=== PATIENT | female | born 1985 | race Caucasian/White ===

== ENCOUNTER 2018-01-13 12:00 | Inpatient (IN) ==
--- OUTSIDE RECORDS SUMMARY | 2018-03-13 05:25 | External Medical Summary | Continuity of Care Document ---
:1986 Author Organization [facility] [employer] [facility] Address [address] [place], [place] [address] Phone Care Team Providers Name Role Phone Brii Bobby MD Unavailable Unavailable Allergies, Adverse Reactions, Alerts Substance Reaction Severity Status No Known Drug Allergies Unknown Active Medications Medication Instructions Dosage Effective Dates Status Comments (start - stop) Rhophylac 1,500 - Active unit (300 mcg)/2 mL injection syringe 27 mg-0.8 take 1 tablet by Not Available - Active mg tablet oral route every day Tylenol Extra take 2 tablet by 1000 MG - Active Strength 500 mg oral route every 6 tablet hours as needed Problems Condition Effective Dates (start - stop) Clinical Status Previous Low Transverse - 28 weeks gestation of - Encounter for suprvsn of normal - , second trimester 25 weeks gestation of - Previous Low Transverse - Encounter for suprvsn of normal - , second trimester 20 weeks gestation of - Previous Low Transverse - Encounter for suprvsn of normal - , third trimester 30 weeks gestation of - Previous Low Transverse - Matern care for oth or susp poor fetl - grth, 2nd tri, unsp Encounter for suprvsn of normal - , second trimester 16 weeks gestation of - Previous Low Transverse - Matern care for oth or susp poor fetl - grth, 2nd tri, unsp 20 weeks gestation of - Procedures Procedure Date OB Visit No Charge Results Test Name Date and Time Measure Units Reference Range Abnormal Flag Comments Unknown Advance Directives Directive Yes / No Effective Date File Name Unknown Encounters Encounter Practice Location Reason(s) Diagnoses Date Provider Care Team Description For Visit Members Victorino Owens Previous Low Dec- Concetta Referring In Womens Transverse 9-201 Tiff. Provider: Victor Manuel HADLEY, C-SectionEncou 8 700 Tiff [address], nter for [place], suprvsn of Center 700 [id number], normal Dr [facility] , 120, Center tel:+21 third [place], [facility] 120, [address] [id number] Roman MARIE, weeks [id number] [place], gestation of , [place]. [id number]. tel: tel:[phone] Victorino Owens Previous Low Dec-0 Salmeron Referring In Womens Transverse 6-201 Sue. Provider: Victor Manuel HADLEY [id number] 8 700 Tiff [address], weeks [place], gestation of Center 700 [id number], Dr [facility] 120, [place] tel:+21 [facility] 120, [address] [place], Roman, [id number] [place], , [place]. [id number]. tel: tel:[phone] Victorino Owens Encounter for Salmeron Referring In Womens suprvsn of 6-201 Sue. Provider: Victor Manuel HADLEY normal 8 700 Tiff [address], , [place], second Center 700 [id number], [id number] Dr [facility] weeks 120, Center tel:+[phone] gestation of [place], [facility] 120, [address] Roman MARIE, [id number] [place], , [place]. [id number]. tel: tel:+ [phone] Victorino Owens Previous Low Dec-1 Concetta Referring In Womens Transverse 4-201 Tiff. Provider: Victor Manuel HADLEY, C-SectionEncou 7 700 Tiff [address], nter for Medical Concetta [place], suprvsn of Center 700 [id number], normal , [facility] , 120, Center tel: second Roman, Jose 120, [address] [id number] Roman MARIE, weeks [id number] [place], gestation of , [place]. [id number]. tel: tel: [phone] Victorino Owens Previous Low Dec-1 Concetta Referring In Womens Ultrasound Transverse 4-201 Tiff. Provider: Victor Manuel HADLEY, C-SectionMater 7 700 Tiff [address], n care for oth Medical Concetta L, Krystal, [place], or susp poor Center 700 [id number], 2nd Kira rabago, [facility] tri, unsp20 120, [place] tel: weeks Roman, Jose 120, [address] gestation of Roman MARIE, [id number] [place], , [place]. [id number]. tel: tel: [phone] Victorino Owens Nov-1 Sobbing In Womens 7-201 Tomasz. Victor Manuel HADLEY, 7 700 [address], [facility] [place], [place], Center [id number], Drive, [place] Suite tel: 120, [address] [place], [address], [place]. tel: [phone] Victorino Owens Previous Low Nov-1 Concetta Referring In Womens Transverse 6-201 Tiff. Provider: Victor Manuel HADLEY, C-SectionMater 7 700 Tiff [address], n care for ot Medical Concetta LKrystal, [place], or susp poor Center 700 [id number], 2nd Kira rabago, [facility] tri, 120, [place] tel:21 unspEncounter Roman, Jose 120, [address] for suprvsn of Roman MARIE, normal [id number] [place], , , [place]. [id number]. second tel: tel: [id number] [phone] weeks gestation of Associates Roman Dec- Blanche Referring In Womens 6-201 Xiomy. Provider: Victor Manuel HADLEY, 4 700 Jazz Ramos, [address], Medical [facility] [place], [place], Center Carriage [id number], Jose Malone [place], 120, [place], tel:21 [place], [address]. [address] [place], tel: [phone] , [place]. tel: [phone] Victorino Owens Nov-2 Blanche Referring In Womens 0-201 Xiomy. Provider: Victor Manuel HADLEY, 4 700 Jazz Ramos, [address], Medical [facility] [place], [place], Center Carriage [id number], [facility], 120, [place], tel:21 [place], [address]. [address] [place], tel: [phone] , [place]. tel: [phone] Victorino Owens Nov- Blanche Referring In Womens 3-201 Xiomy. Provider: Victor Manuel HADLEY, 4 700 Jazz Ramos, [address], [place] [address] [address] [place], [place], Center Carriage [id number], Jose Malone [place], 120, [place], tel:21 [place], [address]. [address] [place], tel: [phone] , [place]. tel: [phone] Family History Family Member Diagnosis Age At Onset No family history of Venous Thrombosis Maternal Grandmother Breast Cancer No family history of Pulmonary Embolism Immunizations Vaccine Date Status Comments Rhophylac completed Source: New Immunization Record Influenza, injectable, completed Source: New Immunization Record quadrivalent, preservative free, 3 yrs or older Tdap completed Source: Other Provider Payers Payer name Insurance type Covered libertarian ID Authorization(s) [facility] [id number] [facility] BL [id number] [facility] [id number] Social History Type Description Quantity Date Captured Alcohol Use Details No Caffeine Use Details Unknown Tobacco Use Status Unknown Smoking Status Never smoker Vital Signs Date / Height Weight BMI Pulse Blood Temperature Respiratory Body Head BMI Time: Rate Pressure Rate Surface Circumference percentile Area 9 9 3:07 kg/m PM eter (2) 161.20 26.8 99/59 -2018 lbs 2 mm[Hg] 3:14 kg/m PM eter (2) 161.20 .8 lbs 2 3:11 kg/m PM eter (2) Chief Complaint And Reason For Visit Unknown Chief Complaint And Reason For Visit Reason For Referral Reason For Referral Unknown Plan Of Care Date Type Action Status Appointment Debbie Rhodes BOOKED Appointment Debbie Rhodes BOOKED Appointment Debbie Rhodes BOOKED Appointment Debbie Rhodes [facility] C/S BOOKED Future Order: Radiology Order Complete OB Ultrasound > 14 Ordered Weeks (70220) Date Type Problem Goal Intervention Status Start Date Unknown. History Of Present Illness Encounter Date Complaint History Of Present Illness This patient has no known history of present illness Functional Status Encounter Date Functional Assessment Cognitive Assessment Unknown Medications Administered Medication Instructions Dosage Effective Dates (start - stop) Status Comments Drug Treatment Unknown Instructions Date Instruction Additional Information new ob handbook [facility]
--- OUTSIDE RECORDS SUMMARY | 2018-03-13 05:25 | External Medical Summary | Continuity of Care Document ---
:1986 Author Organization [facility] Address [address] [place], [place] [address] Phone Care Team Providers Name Role Phone Brii Bobby MD Unavailable Unavailable Allergies, Adverse Reactions, Alerts Substance Reaction Severity Status No Known Drug Allergies Unknown Active Medications Medication Instructions Dosage Effective Dates Status Comments (start - stop) 27 mg-0.8 take 1 tablet by Not Available - Active mg tablet oral route every day Tylenol Extra take 2 tablet by 1000 MG - Active Strength 500 mg oral route every 6 tablet hours as needed Problems Condition Effective Dates (start - stop) Clinical Status Previous Low Transverse - Matern care for oth or susp poor fetl - grth, 2nd tri, unsp Encounter for suprvsn of normal - , second trimester 16 weeks gestation of - Procedures Procedure Date Initial OB Visit No Charge - RADIO RECORDER Immuniz admnin, 1 vac, sngl/combo 19 Yrs + Flu Vaccine - Quadrivalent OB Prepayment Agreement Results Test Name Date and Time Measure Units Reference Range Abnormal Flag Comments Unknown Advance Directives Directive Yes / No Effective Date File Name Unknown Encounters Encounter Practice Location Reason(s) Diagnoses Date Provider Care Team Description For Visit Members Associates Roman Nina In [address], 700 [address], [place], [place], [place] [id number], Drive, Suite tel:[phone], [address] [place], [address], [place]. tel: [phone] Victorino Owens Previous Low Concetta Referring In Womens Tiff. Provider: Victor Manuel HADLEY, C-SectionMatern 700 Tiff [address], care for oth or Medical Concetta L, [place], [place], susp poor fetl Center 700 [id number], grkerrie, 2nd tri, , [facility] unspEncounter 120, [place] [address] tel:21 for suprvsn of [place], [facility] 120, [address] normal [place], [place], , [id number] [place], second , [place]. [id number]. [id number] tel: tel:316 weeks gestation [phone] of Victorino Owens Blanche Referring In Womens Xiomy. Provider: Katerin Martines, [address], Medical [address] [place], [place], Center Carriage [id number], [facility] 120, [place], tel:21 [place], [address]. [address] [place], tel: [phone] , [place]. tel: [phone] Victorino [place] Blanche Referring In Womens -2013 Xiomy. Provider: Katerin Martines, [address], Medical [address] [place], [place], Center Carriage [id number], Dr [facility], 120, [place], tel:21 [place], [address]. [address] [place], tel:[phone] , [place]. tel: [phone] Victorino Owens Radhaoscar Referring In Womens Xiomy. Provider: Katerin Martines, [address], Medical [address] [place], [place], Center Carriage [id number], Jose Malone [place], 120, [place], tel:+21 [place], [address]. [address] [place], tel:[phone] , [place]. tel: [phone] Family History Family Member Diagnosis Age At Onset No family history of Venous Thrombosis Maternal Grandmother Breast Cancer No family history of Pulmonary Embolism Immunizations Vaccine Date Status Comments Influenza, injectable, completed Source: New Immunization Record quadrivalent, preservative free, 3 yrs or older Tdap completed Source: Other Provider Payers Payer name Insurance type Covered republican ID Authorization(s) [facility] [id number] [facility] [id number] Social History Type Description Quantity Date Captured Alcohol Use Details No Caffeine Use Details coffee 1 cup per day Tobacco Use Status Never smoked tobacco Smoking Status Never smoker Vital Signs Date / Height Weight BMI Pulse Blood Temperature Respiratory Body Head BMI Time: Rate Pressure Rate Surface Circumference percentile Area 145.30 24.1 106/70 lbs 8 mm[Hg] 1:58 kg/m PM eter (2) Chief Complaint And Reason For Visit Unknown Chief Complaint And Reason For Visit Reason For Referral Reason For Referral Unknown Plan Of Care Date Type Action Status Appointment Debbie Rhodes BOOKED Appointment Debbie Rhodes BOOKED Date Type Problem Goal Intervention Status Start [...]
--- OUTSIDE RECORDS SUMMARY | 2018-03-13 05:25 | External Medical Summary | Continuity of Care Document ---
:1986 Author Organization [facility] [employer] [facility] Address [address] [place], [place] [address] Phone Care Team Providers Name Role Phone [...] stop) Clinical Status Previous Low Transverse - Encounter for suprvsn [...] For Visit Members Victorino Owens Previous Low Dec-1 Concetta Referring In Womens Transverse 4-201 Tiff. Provider: Victor Manuel HADLEY, C-SectionEncou 7 700 Tiff [address], nter for Medical [place], suprvsn of Center 700 [id number], normal , [facility] , 120, Center tel:21 second [place], Jose 120, [address] [id number] Roman MARIE, weeks [id number] [place], gestation of , [place]. [id number]. tel: tel: [phone] Victorino Owens Previous Low Dec-1 Concetta Referring In Womens Ultrasound Transverse 4-201 Tiff. Provider: Victor Manuel HADLEY, C-SectionMater 7 700 Tiff [address], n care for ot Medical Concetta Roberto, Krystal, [place], or susp poor Center 700 [id number], 2nd Kira rabago, [facility] tri, unsp20 120, [place] tel:21 weeks [place], Jose 120, [address] gestation of Roman MARIE, [id number] [place], , [place]. [id number]. tel: tel:[phone] Victorino Owens Nov-1 Sobbing In Womens 7-201 Tomasz. Victor Manuel HADLEY, 7 700 [address], [place], [place], [place] [id number], [facility], [place] Suite tel:21 120, [address] [place], [address], [place]. tel: [phone] Victorino Owens Previous Low Nov-1 Concetta Referring In Womens Transverse 6-201 Tiff. Provider: Victor Manuel HADLEY, C-SectionMater 7 700 Tiff [address], n care for ot Medical Concetta Roberto, Krystal, [place], or susp poor Center 700 [id number], 2nd Kira rabago, [facility] tri, 120, [place] tel:21 unspEncounter [place], Jose 120, [address] for suprvsn of Roman MARIE, normal [id number] [place], , , [place]. [id number]. second tel: tel: [id number] [phone] weeks gestation of Victorino Owens Blanche Referring In Womens 6-201 Xiomy. Provider: Health LEOINE, 4 700 Jazz Ortiztim, [address], Medical [address] [place], [place], Center Carriage [id number], [facility], 120, [place], tel:+21 [place], [address]. [address] [place], tel:+ [phone] , [place]. tel: [phone] Victorino Owens Nov- Blanche Referring In Womens 0-201 Xiomy. Provider: Health PA, 4 700 Jazzchen Ramos, [address], Medical [address] [place], [place], Center Carriage [id number], [facility], 120, [place], tel:+[phone] [place], [address]. [address] [place], tel:+ [phone] , [place]. tel: [phone] Victorino [place] Nov- Blanche Referring In Womens 3-201 Xiomy. Provider: Health LEONIE, 4 700 Jazz Ortiztim, [address], Medical [address] [place], [place], Center Carriage [id number], [facility], 120, [place], tel:+21 [place], [address]. [address] [place], tel:+ [phone] , [place]. tel: [phone] Family History Family Member Diagnosis Age At Onset No family history of Venous Thrombosis Maternal Grandmother Breast Cancer No family history of Pulmonary Embolism Immunizations Vaccine Date Status Comments Influenza, injectable, completed Source: New Immunization Record quadrivalent, preservative free, 3 yrs or older Tdap completed Source: Other Provider Payers Payer name Insurance type Covered alliance party ID Authorization(s) [facility] [id number] [facility] [id number] Social History Type Description Quantity Date Captured Alcohol Use Details No Caffeine Use Details Unknown Tobacco Use Status Unknown Smoking Status Never smoker Vital Signs Date / Height Weight BMI Pulse Blood Temperature Respiratory Body Head BMI Time: Rate Pressure Rate Surface Circumference percentile Area Unknown Chief Complaint And Reason For Visit Unknown Chief Complaint And Reason For Visit Reason For Referral Reason For Referral Unknown Plan Of Care Date Type Action Status Appointment Debbie Rhodes BOOKED Future Order: Radiology Order Complete OB Ultrasound > 14 Ordered Weeks ([id number]) Date Type Problem Goal Intervention Status Start [...]
--- OUTSIDE RECORDS SUMMARY | 2018-03-13 05:25 | External Medical Summary | Continuity of Care Document ---
:1986 Author Organization [facility] [employer] [facility] Address [address] [place], [place] [address] Phone Care Team Providers Name Role Phone [...] for oth or susp poor fetl - gr, tri, unsp 20 weeks gestation of - Previous Low Transverse - Encounter for suprvsn of normal - , second trimester 20 weeks gestation of - Previous Low Transverse - Matern care for oth or susp poor fetl - , tri, unsp Encounter for suprvsn of normal - , second trimester 16 weeks gestation of - Procedures Procedure Date Ultrasound exam of preg uterus, complete Results Test Name Date and Time Measure Units Reference Range Abnormal Flag Comments Unknown Advance Directives Directive Yes / No Effective Date File Name Unknown Encounters Encounter Practice Location Reason(s) Diagnoses Date Provider Care Team Description For Visit Members Associates Roman Previous Low Dec-1 Concetta Referring In Womens Transverse 4-201 Tiff. Provider: Victor Manuel HADLEY, C-SectionEncou 7 700 Tiff [address], nter for Medical [place], suprvsn of Center 700 [id number], normal , [facility] , 120, Center tel: second [place], Jose 120, [address] [id number] Roman MARIE, weeks [id number] [place], gestation of , [place]. [id number]. tel: tel: [phone] Associates Roman Previous Low Dec-1 Concetta Referring In Womens Ultrasound Transverse 4-201 Tiff. Provider: Victor Manuel HADLEY, C-SectionMater 7 700 Tiff [address], n care for ot Medical Concetta [place], or susp poor Center 700 [id number], 2nd Kira rabago, [facility] tri, unsp20 120, [place] tel: weeks [place], Jose 120, [address] gestation of Roman MARIE, [id number] [place], , [place]. [id number]. tel: tel: [phone] Associates Roman Nov-1 Sobbing In Womens 7-201 [place]. Victor Manuel HADLEY, 7 700 [address], [facility] [place], [place] [id number], Drive, [place] Suite tel: 120, [address] [place], [address], [place]. tel: [phone] Victorino Owens Previous Low Nov-1 Concetta Referring In Womens Transverse 6-201 Tiff. Provider: Victor Manuel HADLEY, C-SectionMater 7 700 Tiff [address], n care for ot Medical Concetta [place], or susp poor Center 700 [id number], 2nd Kira rabago, [facility] tri, 120, [place] tel:21 unspEncounter [place], Jose 120, [address] for suprvsn of Roman MARIE, normal [id number] [place], , , [place]. [id number]. second tel: tel: [email or web address] [phone] weeks gestation of Victorino Owens Radhaoscar Referring In Womens 6-201 Xiomy. Provider: Victor Manuel HADLEY, 4 700 Jazz Ramos, [address], Medical [facility] N [place], [place], Center Carriage [id number], Jose Malone [place], 120, [place], tel:+21 [place], [address]. [address] [place], tel:+ [phone] , [place]. tel: [phone] Victorino [place] Nov- Blanche Referring In Womens 0-201 Xiomy. Provider: Victor Manuel HADLEY, 4 700 Jazz Ramos, [address], Medical [facility] N [place], [place], Center Carriage [id number], [facility], 120, [place], tel:+[phone] [place], [address]. [address] [place], tel:+ [phone] , [place]. tel: [phone] Victorino Owens Blanche Referring In Womens 3-201 Xiomy. Provider: Victor Manuel HADLEY, 4 700 Jazz Ramos, [address], Medical [address] [place], [place], Center Carriage [id number], [facility], 120, [place], tel:+21 [place], [address]. [address] [place], tel:+ [phone] , [place]. tel: [phone] Family History Family Member Diagnosis Age At Onset No family history of Venous Thrombosis Maternal Grandmother Breast Cancer No family history of Pulmonary Embolism Immunizations Vaccine Date Status Comments Influenza, injectable, completed Source: New Immunization Record quadrivalent, preservative free, 3 yrs or older Tdap completed Source: Other Provider Payers Payer name Insurance type Covered republican ID Authorization(s) [facility] CYNTHIA HERNANDEZ [id number] [facility] CYNTHIA HERNANDEZ [id number] Social History Type Description Quantity Date Captured Unknown Vital Signs Date / Height Weight BMI [...] Complete OB Ultrasound > 14 Ordered Weeks (64089) Date Type Problem Goal Intervention Status Start [...]
--- OUTSIDE RECORDS SUMMARY | 2018-03-13 05:25 | External Medical Summary | Continuity of Care Document ---
:1985 Author Organization [facility] Address [address] [place], [place] [id number] Phone Care Team Providers Name Role Phone [...] oth or susp poor fetl - grth, third tri, unsp Encounter for suprvsn of normal - , third trimester 32 weeks gestation of - Encounter for suprvsn [...] gestation of - Previous Low Transverse - 28 weeks gestation of - Previous Low Transverse - Matern care for oth or susp poor fetl - grth, third tri, unsp 34 weeks gestation of - Previous Low Transverse - Encounter for suprvsn of normal - , third trimester 34 weeks gestation of - Procedures Procedure Date OB Visit No Charge Results Test Name Date and Time Measure Units Reference Range Abnormal Flag Comments Unknown Advance Directives Directive Yes / No Effective Date File Name Unknown Encounters Encounter Practice Location Reason(s) Diagnoses Date Provider Care Team Description For Visit Members [facility] Previous Low Jan- Concetta Referring In Womens Transverse 9-201 Tiff. Provider: Victor Manuel HADLEY C-SectionEncou 8 700 Tiff [address], nter for Medical Concetta L, [place], [place], suprvsn of Center 700 [id number], normal Jose Malone [place] , 120, Center tel: third Owens, Jose 120, [address] [id number] [place], [place], weeks [id number] [place], gestation of , [place]. [id number]. tel: tel: [phone] [facility] Previous Low Jan- Concetta Referring In Womens Ultrasound Transverse 9-201 Tiff. Provider: Victor Manuel HADLEY C-SectionMater 8 700 Tiff [address], n care for oth Medical Concetta L, [place], [place], or susp poor Center 700 [id number], fetl Dr [address] [facility] [place] third tri, 120, Center tel:21 unsp34 weeks Owens, Jose 120, [address] gestation of Roman MARIE, [id number] [place], , [place]. [id number]. tel: tel:[phone] Victorino Owens Previous Low Mar-0 Concetta Referring In Womens Transverse 5-201 Tiff. Provider: Victor Manuel HADLEY, C-SectionMater 8 700 Tiff [address], n care for oth Medical Concetta L, [place], [place], or susp poor Center 700 [id number], fetl gurwinder, , [facility] third tri, 120, Center tel:+21 unspEncounter Owens, [facility] 120, [address] for suprvsn of Roman MARIE, normal [id number] [place], , , [place]. [id number]. third tel: tel:+[phone] [id number] [phone] weeks gestation of [facility] Previous Low Feb-1 Concetta Referring In Womens Transverse 9-201 Tiff. Provider: Victor Manuel HADLEY C-SectionEncou 8 700 Tiff [address], nter for Medical Concetta L, [place], [place], suprvsn of Center 700 [id number], normal , [facility] , 120, Center tel:+21 third Owens, [facility] 120, [address] [id number] Roman MARIE, weeks [id number] [place], gestation of , [place]. [id number]. tel: tel:[phone] Victorino Owens Previous Low Feb-0 Salmeron Referring In Womens Transverse 6-201 Sue. Provider: Victor Manuel HADLEY, [id number] 8 700 Tiff [address], weeks Medical Concetta L, [place], [place], gestation of Center 700 [id number], Dr, [facility] 120, [place] tel:+[phone] [facility] 120, [address] [place], [place], [id number] [place], , [place]. [id number]. tel: tel:[phone] Victorino Owens Encounter for Tio- Salmeron Referring In Womens suprvsn of 6-201 Sue. Provider: Victor Manuel HADLEY normal 8 700 Tiff [address], , Medical Concetta L, [place], second Center 700 [id number] [email or web address] Dr, [facility] weeks 120, Center tel: gestation of Roman, Jose 120, [address] Roman MARIE, [id number] [place], , [place]. [id number]. tel: tel: [phone] Victorino Owens Previous Low Dec-1 Concetta Referring In Womens Transverse 4-201 Tiff. Provider: Victor Manuel HADLEY, C-SectionEncou 7 700 Tiff [address], nter for Medical Concetta L, [place], [place], suprvsn of Center 700 [id number], normal Dr, [facility] , 120, Center tel: second Owens, Jose 120, [address]015 [id number] Roman MARIE, weeks [id number] [place], gestation of , [place]. [id number]. tel: tel: [phone] Victorino Owens Previous Low Dec-1 Concetta Referring In Womens Ultrasound Transverse 4-201 Tiff. Provider: Victor Manuel HADLEY, C-SectionMater 7 700 Tiff [address], n care for oth Medical Concetta L, [place], [place], or susp poor Center 700 [id number], fetl grth, 2nd , [facility] tri, unsp20 120, Center tel: weeks Roman, Jose 120, [address] gestation of Roman MARIE, [id number] [place], , [place]. [id number]. tel: tel: [phone] Victorino Owens Nov-1 Sobbing In Womens 7-201 Tomasz. Victor Manuel HADLEY, 7 700 [address], Medical [place], [place], Center [id number], Drive, [place] Suite tel: 120, [address] [place], [address], [place]. tel: [phone] Victorino Owens Previous Low Nov-1 Concetta Referring In Womens Transverse 6-201 Tiff. Provider: Victor Manuel HADLEY, C-SectionMater 7 700 Tiff [address], n care for oth Medical Concetta L, [place], [place], or susp poor Center 700 [id number], fetl gurwinder, 2nd , [facility] tri, 120, Center Dr tel:+ unspEncounter Owens, [facility] 120, [address] for suprvsn of [place], Roman, normal [id number] [place], , , [place]. [id number]. second tel: tel: [id number] [phone] weeks gestation of Victorino Owens Dec- Blanche Referring In Womens 6-201 Xiomy. Provider: Health LEONIE, 4 700 Jazz Ramos, [address], Medical [address] [place], [place], Center Carriage [id number], Dr [facility] 120, [place], tel: [place], [address]. [address] [place], tel: [phone] , [place]. tel: [phone] Victorino Owens Nov- Blanche Referring In Womens 0-201 Xiomy. Provider: Health LEONIE, 4 700 Jazz Ramos, [address], Medical [address] [place], [place], Center Carriage [id number], Dr [facility], 120, [place], tel: [place], [address]. [address] [place], tel: [phone] , [place]. tel: [phone] Victorino Owens Nov-0 Holdoscar Referring In Womens 3-201 Xiomy. Provider: Victor Manuel HADLEY, 4 700 Jazz Ramos, [address], [address], Center Carriage [id number], Dr [facility], 120, [place], [place]: [place], [address]. [address] [place], tel:[phone] , [place]. tel: [phone] Family History Family Member Diagnosis Age At Onset No family history of Venous Thrombosis Maternal Grandmother Breast Cancer No family history of Pulmonary Embolism Immunizations Vaccine Date Status Comments Rhophyla completed Source: New Immunization Record Influenza, injectable, completed Source: New Immunization Record quadrivalent, preservative free, 3 yrs or older Tdap completed Source: Other Provider Payers Payer name Insurance type Covered green party ID Authorization(s) [facility] [place] [id number] [facility] [place] [id number] [facility] [place] [id number] Social History Type Description Quantity Date Captured [...] Appointment Debbie Rhodes BOOKED Appointment Debbie Rhodes [facility] R C/S BOOKED Future Order: Radiology Order Complete OB Ultrasound > 14 Ordered Weeks ([id number]) Future Order: Radiology Order Ultrasound OB Follow-up ([id number]) Ordered Date Type Problem Goal Intervention Status Start [...]
--- OUTSIDE RECORDS SUMMARY | 2018-03-13 05:25 | External Medical Summary | Continuity of Care Document ---
:1985 Author Organization [facility] Address [address] [place], [place] [phone] Phone Care Team Providers Name Role Phone [...] tri, unsp 34 weeks gestation of - Encounter for suprvsn [...] third trimester 32 weeks gestation of - Previous Low Transverse [...] suprvsn of normal - , third trimester 36 weeks gestation of - Previous Low Transverse - Encounter for suprvsn of normal - , third trimester 34 weeks gestation of - Procedures Procedure Date Ultrasnd preg uterus, flwup/repeat Results Test Name Date and Time Measure Units Reference Range Abnormal Flag Comments Unknown Advance Directives Directive Yes / No Effective Date File Name Unknown Encounters Encounter Practice Location Reason(s) Diagnoses Date Provider Care Team Description For Visit Members Victorino Owens Previous Low Concetta Referring In Womens Transverse 2-201 Tiff. Provider: Sumeet Martines-SectionAllan 8 700 Tiff [address], nter for [place], suprvsn of Center 700 [id number], normal Jose Malone [place] , 120, Center Dr tel:+21 third Roman [facility] 120, [address] [id number] [place], [place], weeks [id number] [place], gestation of , [place]. [id number]. tel: tel: [phone] Victorino Owens Previous Low Jan- Concetta Referring In Womens Transverse 9-201 Tiff. Provider: Sumeet Martines-SectionEncomid 8 700 Tiff [address], nter for [place], suprvsn of Center 700 [id number], normal , [facility] , 120, Center tel:+21 third Owens, Jose 120, [address] Roman MARIE, weeks [id number] [place], gestation of , [place]. [id number]. tel: tel:[phone] [facility] Previous Low Mar-1 Concetta Referring In Womens Ultrasound Transverse 9-201 Tiff. Provider: Victor Manuel HADLEY, C-SectionMater 8 700 Tiff [address], n care for ot Medical Concetta Mejia, [place], [place], or susp poor Center 700 [id number], [address], [facility] third tri, 120, Center tel:+21 unsp34 weeks Owens, Jose 120, [address] gestation of Roman MARIE, [id number] [place], , [place]. [id number]. tel: tel:+[phone] [facility] Previous Low Mar-0 Concetta Referring In Womens Transverse 5-201 Tiff. Provider: Victor Manuel HADLEY C-SectionMater 8 700 Tiff [address], n care for ot Medical Concetta Mejia, [place], [place], or susp poor Center 700 [id number], [address], [facility] third tri, 120, Center tel:+21 unspEncounter Owens, Jose 120, [address] for suprvsn of Roman MARIE, normal [id number] [place], , , [place]. [id number]. third tel: tel:[phone] weeks gestation of [facility] Previous Low Feb-1 Concetta Referring In Womens Transverse 9-201 Tiff. Provider: Victor Manuel HADLEY C-SectionEncou 8 700 Tiff [address], nter for Medical Concetta L, [place], [place], suprvsn of Center 700 [id number], normal , [facility] , 120, Center tel:[phone] third Owens, Jose 120, [address] [id number] Roman MARIE, weeks [id number] [place], gestation of , [place]. [id number]. tel: tel:[phone] Victorino Owens Previous Low Feb-0 Salmeron Referring In Womens Transverse 6-201 Sue. Provider: Victor Manuel HADLEY, [id number] 8 700 Tiff [address], weeks Medical Concetta L, [place], [place], gestation of Center 700 [id number], Dr [facility] [place] 120, Center tel:+21 Roman [facility] 120, [address] Roman MARIE, [id number] [place], , [place]. [id number]. tel: tel:[phone] Victorino Owens Encounter for Tio- Salmeron Referring In Womens suprvsn of 6-201 Sue. Provider: Victor Manuel HADLEY, normal 8 700 Tiff [address], , Medical Concetta L, [place], [place], second Center 700 [id number], [email or web address] Dr [facility] US weeks 120, Center tel:21 gestation of [place], [facility] 120, [address] Roman MARIE, [id number] [place], , [place]. [id number]. tel: tel:[phone] Victorino Owens Previous Low Dec-1 Concetta Referring In Womens Transverse 4-201 Tiff. Provider: Victor Manuel HADLEY, C-SectionEncou 7 700 Tiff [address], nter for Medical Concetta L, [place], [place], suprvsn of Center 700 [id number], normal Dr [facility] [place] , 120, Center tel:21 second Roman [facility] 120, [address] [id number] Roman MARIE, weeks [id number] [place], gestation of , [place]. [id number]. tel: tel:[phone] Victorino Owens Previous Low Dec-1 Concetta Referring In Womens Ultrasound Transverse 4-201 Tiff. Provider: Victor Manuel HADLEY, C-SectionMater 7 700 Tiff [address], n care for oth Medical Concetta L, [place], [place], or susp poor Center 700 [id number], fetl grth, 2nd Dr [facility] tri, unsp20 120, Center tel:21 [facility], [address] gestation of Roman MARIE, [id number] [place], , [place]. [id number]. tel: tel: [phone] Victorino Owens Sep- Sobbing In Womens 7-201 Tomasz. Victor Manuel HADLEY, 7 700 [address], Medical [place], [place], Center [id number], Drive, [place] Suite tel: 120, [address] [place], [address], [place]. tel: [phone] Victorino Owens Previous Low Concetta Referring In Womens Transverse 6-201 Tiff. Provider: Victor Manuel HADLEY, C-SectionMater 7 700 Tiff [address], n care for ot Medical Concetta L, [place], [place], or susp poor Center 700 [id number], fetl gurwinder, 2nd Dr, [facility] tri, 120, Center tel: [facility], [address] for suprvsn of Roman MARIE, normal [id number] [place], , , [place]. [id number]. second tel: tel: [phone] weeks gestation of Victorino Owens Dec- Blanche Referring In Womens 6-201 Xiomy. Provider: Victor Manuel HADLEY, 4 700 Jazz Ramos, [address], Medical [address] [place], [place], Center Carriage [id number], [place], 120, [place], tel: [place], [address]. [address] [place], tel: [phone] , [place]. tel: [phone] Victorino Owens Nov- Blanche Referring In Womens 0-201 Xiomy. Provider: Victor Manuel HADLEY, 4 700 Jazz Ramos, [address], Medical [address] [place], [place], Center Carriage [id number], Jose Malone, 120, [place], tel: [place], [address]. [address] [place], tel:+[phone] , [place]. tel: [phone] Victorino Owens Blanche Referring In Womens 3-201 Xiomy. Provider: Health LEONIE, 4 700 Jazz Ramos, [address], Medical [address] [place], [place], Center Carriage [id number], Jose Malone [place], 120, [place], tel:07434 [place], [address]. [address] [place], tel: [phone] [id number] , [place]. tel: [phone] Family History Family Member Diagnosis Age At [...] Insurance type Covered green party ID Authorization(s) [facility] [id number] [facility] [id number] [facility] [id number] Social History Type Description Quantity Date Captured [...] Appointment Debbie Rhodes BOOKED Appointment Debbie Rhodes [facility] R C/S BOOKED Future Order: Radiology Order Ultrasound OB Follow-up ([id number]) Ordered Future Order: Radiology Order Complete OB Ultrasound > 14 Ordered Weeks ([id number]) Date Type Problem Goal Intervention Status Start [...]
--- OUTSIDE RECORDS SUMMARY | 2018-03-13 05:26 | External Medical Summary | Continuity of Care Document ---
:1986 Author Organization [facility] Address [address] [place], [place] [address] Phone Care Team Providers Name Role Phone [...] third trimester 34 weeks gestation of - Encounter for [...] third trimester 36 weeks gestation of - Procedures Procedure Date OB Visit No Charge Results Test Name Date and Time Measure Units Reference Range Abnormal Flag Comments Unknown Advance Directives Directive Yes / No Effective Date File Name Unknown Encounters Encounter Practice Location Reason(s) Diagnoses Date Provider Care Team Description For Visit Members Victorino Owens Previous Low Concetta Referring In Womens Transverse 2-201 Tiff. Provider: Victor Manuel HADLEY C-SectionEncou 8 700 Tiff [address], nter for [place], suprvsn of [place] 700 [id number], normal Jose Malone Medical [place] , 120, Center Dr tel:+[phone] third Wesley, [facility] 120, [address] [id number] [place], Owens, weeks [id number] [place], gestation of , [place]. [id number]. tel: tel: [phone] Victorino Owens Previous Low Concetta Referring In Womens Transverse 9-201 Tiff. Provider: Victor Manuel HDALEY C-SectionEncou 8 700 Tiff [address], nter for [place], suprvsn of Center 700 [id number], normal , [facility] , 120, Center tel:+21 third Owens, Jose 120, [address] [id number] Roman MARIE, weeks [id number] [place], gestation of , [place]. [id number]. tel: tel:+[phone] [facility] Previous Low Mar-1 Concetta Referring In Womens Ultrasound Transverse 9-201 Tiff. Provider: Victor Manuel HADLEY, C-SectionMater 8 700 Tiff [address], n care for oth Medical Concetta L, [place], [place], or susp poor Center 700 [id number], [address], [facility] third tri, 120, Center tel:21 unsp34 weeks Owens, Jose 120, [address] gestation of Roman MARIE, [id number] [place], , [place]. [id number]. tel: tel:[phone] [facility] Previous Low Mar-0 Concetta Referring In Womens Transverse 5-201 Tiff. Provider: Victor Manuel HADLEY C-SectionMater 8 700 Tiff [address], n care for ot Medical Concetta L, [place], [place], or susp poor Center 700 [id number], [address], [facility] third tri, 120, Center tel:21 unspEncounter Owens, Jose 120, [address] for suprvsn of Roman MARIE, normal [id number] [place], , , [place]. [id number]. third tel: tel:+316 dyliueppx65 [phone] weeks gestation of [facility] Previous Low Feb-1 Concetta Referring In Womens Transverse 9-201 Tiff. Provider: Victor Manuel HADLEY C-SectionEncou 8 700 Tiff [address], nter for Medical Concetta L, [place], [place], suprvsn of Center 700 [id number], normal , [facility] , 120, Center tel:+21 third Owens, Jose 120, [address] [id number] Roman MARIE, weeks [id number] [place], gestation of , [place]. [id number]. tel: tel:+[phone] [facility] Previous Low Feb-0 Salmeron Referring In Womens Transverse 6-201 Sue. Provider: Victor Manuel HADLEY, [id number] 8 700 Tiff [address], weeks Medical Concetta L, [place], [place], gestation of Center 700 [id number], Jose Malone [place] 120, Center tel:+ Roman Jose 120, [address] Roman MARIE, [id number] [place], , [place]. [id number]. tel: tel:+[phone] Associates [facility] Encounter for Nov- Salmeron Referring In Womens suprvsn of 6-201 Sue. Provider: Victor Manuel HADLEY, normal 8 700 Tiff [address], , Medical Concetta L, [place], [place], second Center 700 [id number], [id number] Dr [facility] weeks 120, Center tel: gestation of Wesley [facility] 120, [address] Roman MARIE, [id number] [place], , [place]. [id number]. tel: tel:+[phone] Victorino Owens Previous Low Dec-1 Concetta Referring In Womens Transverse 4-201 Tiff. Provider: Victor Manuel HADLEY C-SectionEncou 7 700 Tiff [address], nter for Medical Concetta L, [place], [place], suprvsn of Center 700 [id number], normal Dr [facility] , 120, Center tel: second Roman [facility] 120, [address] [email or web address] Roman MARIE, weeks [id number] [place], gestation of , [place]. [id number]. tel: tel:+[phone] Victorino Owens Previous Low Dec-1 Concetta Referring In Womens Ultrasound Transverse 4-201 Tiff. Provider: Victor Manuel HADLEY, C-SectionMater 7 700 Tiff [address], n care for oth Medical Concetta L, [place], [place], or susp poor Center 700 [id number], fetl grth, 2nd Dr [facility] tri, unsp20 120, Center tel:+21 weeks Roman [facility] 120, [address] gestation of Roman MARIE, [id number] [place], , [place]. [id number]. tel: tel: [phone] Victorino Owens Sobbing In Womens 7-201 Tomasz. Victor Manuel HADLEY, 7 700 [address], Medical [place], [place], Center [id number], Drive, [place] Suite tel: 120, [address] [place], [address], [place]. tel: [phone] Victorino Owens Previous Low Concetta Referring In Womens Transverse 6-201 Tiff. Provider: Victor Manuel HADLEY, C-SectionMater 7 700 Tiff [address], n care for oth Medical Concetta L, [place], [place], or susp poor Center 700 [id number], fetl gurwinder, 2nd Dr, [facility] tri, 120, [place] Dr tel: unspEncounter [facility] 120, [address] for suprvsn of Roman MARIE, normal [id number] [place], , , [place]. [id number]. second tel: tel: [phone] weeks gestation of Victorino Owens Blanche Referring In Womens 6-201 Xiomy. Provider: Victor Manuel HADLEY, 4 700 Jazz Ramos, [address], Medical [address] [place], [place], Center Carriage [id number], Dr [facility], 120, [place], tel: [place], [address]. [address] [place], tel:[phone] , [place]. tel: [phone] Victorino Owens Nov- Holdoscar Referring In Womens 0-201 Xiomy. Provider: Victor Manuel HADLEY, 4 700 Jazz Ramos, [address], Medical [address] [place], [place], Center Carriage [id number], Dr [facility], 120, [place], tel: [place], [address]. [address] [place], tel: [phone] , [place]. tel: [phone] Victorino Owens [place] Referring In Womens 3-201 Xiomy. Provider: Health LEONIE, 4 700 Jazz Ramos, [address], Medical [address] [place], Center Carriage [id number], Jose Malone, 120, [place], tel:+[phone] [place], [address]. [address] [place], tel: [phone] , [place]. tel: [phone] Family History Family Member Diagnosis Age At Onset No family history of Venous Thrombosis Maternal Grandmother Breast Cancer No family history of Pulmonary Embolism Immunizations Vaccine Date Status Comments Rhophylac completed Source: New Immunization Record Influenza, injectable, completed Source: New Immunization Record quadrivalent, preservative free, 3 yrs or older Tdap completed Source: Other Provider Payers Payer name Insurance type Covered constitution party ID Authorization(s) [facility] [id number] [facility] [id number] [facility] [id number] Social History Type Description Quantity Date Captured [...] Appointment Debbie Rhodes BOOKED Appointment Debbie Rhodes [facility] R C/S BOOKED Future Order: Radiology Order Complete OB Ultrasound > 14 Ordered Weeks ([id number]) Future Order: Radiology Order Ultrasound OB Follow-up ([id number]) Ordered Date Type Problem Goal Intervention Status [...]
--- OUTSIDE RECORDS SUMMARY | 2018-03-13 05:26 | External Medical Summary | Continuity of Care Document ---
:1985 Author Organization [facility] Address [address] [place], [place] [id number] Phone Care Team Providers Name Role Phone [...] weeks gestation of - Procedures Procedure Date Unknown Results Test Name Date and Time Measure Units Reference Range Abnormal Flag Comments Unknown Advance Directives Directive Yes / No Effective Date File Name Unknown Encounters Encounter Practice Location Reason(s) Diagnoses Date Provider Care Team Description For Visit Members Victorino Owens Sobbing In -2016 Tomasz. Victor Manuel HADLEY, Katerin [address], [facility] [id number], [facility], Suite tel:[phone], [address] [place], [address], [place]. tel:[phone] Victorino Owens Previous Low Concetta Referring In [facility] Tiff. Provider: Health [place], C-SectionMatern [address], care for oth or Medical Concetta L, [place], [place], susp poor fetl Center 700 [id number], gurwinder, 2nd tri, , [facility] unspEncounter 120, [place] tel: for suprvsn of [place], [facility] 120, [address] normal [place], [place], , [id number] [place], second , [place]. [id number]. tel: [phone] weeks gestation [phone] of Associates Roman Radhaoscar Referring In Womens -2013 Xiomy. Provider: Victor Manuel HADLEY, [address], [address], Medical [address] [place], [place], Center Carriage [id number], [facility], 120, [place], tel: [place], [address]. [address] [place], tel:[phone] , [place]. tel: [phone] Victorino Owens Blanche Referring In Womens Xiomy. Provider: Victor Manuel HADLEY, [address], [address], [place] [id number] [place], [place], Center Carriage [id number], Dr [facility] 120, [place], tel: [place], [address]. [address] [place], tel: [phone] , [place]. tel: [phone] Victorino Ownes Blanche Referring In Womens Xiomy. Provider: Victor Manuel HADLEY, [address], [address], Medical [address] [place], [place], Center Carriage [id number], Jose Malone [place], 120, [place], tel: [place], [address]. [address] [place], tel:[phone] , [place]. tel: [phone] Family History Family Member Diagnosis Age At Onset No family history of Venous Thrombosis Maternal Grandmother Breast Cancer No family history of Pulmonary Embolism Immunizations Vaccine Date Status Comments Influenza, injectable, completed Source: New Immunization Record quadrivalent, preservative free, 3 yrs or older Tdap completed Source: Other Provider Payers Payer name Insurance type Covered libertarian ID Authorization(s) [facility] [id number] [facility] [id number] Social History Type Description Quantity Date Captured [...]
--- OUTSIDE RECORDS SUMMARY | 2018-03-13 05:26 | External Medical Summary | Continuity of Care Document ---
:1985 Author Organization [facility] Allergies Active Description Code Type Severity Reaction Onset Reported/ Identified Relationship Clinical to Patient Status Yes No Known 55473 3 N/A N/A Drug 0 Allergies Yes No Known Aller Unknown N/A 02/28/2018 Allergies gy Medications Medication Packaging Start Date Stop Date Route Dosage Sig Packet 05/26/2015 09/30/2017 RECLIPSEN take 1 tablet by oral route every day Syringe 12/06/2017 RHOPHYLAC Problems Date Dx Coded Attending Type Code Diagnosis Diagnosed By 11/03/2017 Tiff Hylton O34.211 Previous Low Transverse 11/03/2017 Tiff Hylton O36.5920 Matern care for oth or susp poor fetl grth, 2nd tri, unsp 11/03/2017 Tiff Hylton Z3A.20 20 weeks gestation of 12/06/2017 Sue Salmeron Z34.82 Encounter for suprvsn of normal , second trimester 12/06/2017 Sue Salmeron3A.25 25 weeks gestation of 02/06/2018 Tiff Hylton O34.211 Previous Low Transverse 02/06/2018 Tiff Hylton O36.5930 Matern care for oth or susp poor fetl grth, third tri, unsp 02/06/2018 Tiff Hylton Z3A.34 34 weeks gestation of Procedures Code [place] [address] Ultrasnd 11/03/2017 exam of preg uterus, compl [id number] OB Visit No 12/06/2017 Charge [id number] Ultrasnd 02/06/2018 preg uterus, flwup/repeat Results There is no data. Encounters ACCT No. Visit Discharge Status Pt. Type Provider Facility Loc./Unit Complaint Date/Time [id number] 03/06/2018 03/06/2018 CLS Outpatient Concetta, 15:15:00 23:59:59 Tiff Mejia [id number] 02/27/2018 02/27/2018 CLS Outpatient Concetta, 14:30:00 23:59:59 Tiff L [id number] 02/20/2018 02/20/2018 CLS Outpatient Concetta, 15:15:00 23:59:59 Tiff L [id number] 02/06/2018 02/06/2018 CLS Outpatient Concetta, 14:45:00 23:59:59 Tiff L [id number] 02/06/2018 02/06/2018 CLS Outpatient Concetta, 13:45:00 23:59:59 Tiff L [id number] 01/23/2018 01/23/2018 CLS Outpatient Concetta, 15:15:00 23:59:59 Tiff L [id number] 01/09/2018 01/09/2018 CLS Outpatient Concetta, 15:15:00 23:59:59 Tiff L [id number] 12/27/2017 12/27/2017 CLS Outpatient Salmeron, 15:00:00 23:59:59 Sue Sutherland [id number] 12/06/2017 12/06/2017 CLS Outpatient Salmeron, 14:30:00 23:59:59 Sue Sutherland [id number] 11/03/2017 11/03/2017 CLS Outpatient Concetta, 16:15:00 23:59:59 Tiff L [id number] 11/03/2017 11/03/2017 CLS Outpatient Concetta, 15:45:00 23:59:59 Tiff L [id number] 10/07/2017 10/07/2017 CLS Outpatient Sobbing, 13:49:00 23:59:59 Tomasz L [id number] 10/06/2017 10/06/2017 CLS Outpatient Concetta, 13:30:00 23:59:59 Tiff L [id number] 10/06/2017 Document 13:46:12 Registration [id number] 01/13/2018 01/13/2018 CLS Preadmit CONCETTA Roman remy section [id number] 12:00:00 23:59:59 , [facility] TIFF [facility]
[2018-03-13] MEDS ORDERED: FAMOTIDINE PB 20 MG/50 ML BAG IV ONE (05:31)
[2018-03-13] MEDS ORDERED: CITRIC ACID/SODIUM CITRATE 30ml PO ONE (05:31)
[2018-03-13] MEDS ORDERED: CEFAZOLIN PREMIX (MC ONLY) 2 GM/50 ML BAG IV ONE (05:31)
[2018-03-13] MEDS ORDERED: NOZIN NASAL SWAB NAS ONE ×2 (05:31)
[2018-03-13] MEDS: LR 1,000 ML IV SCH ×2 (05:53→08:00)
[2018-03-13 06:03] VITALS: BMI 28.5
[2018-03-13] MEDS ORDERED: FentaNYL 250 MCG/5 ML INJECTION ONE (07:06)
[2018-03-13] MEDS ORDERED: MORPHINE SULFATE PF 5mg/10ml INJ (Duramorph) ONE (07:06)
[2018-03-13] MEDS ORDERED: PHENYLEPHRINE INJ 10 MG/ML VIAL IV ONE (07:06)
[2018-03-13] MEDS ORDERED: SALINE FLUSH 10ml SYRINGE ONE (07:07)
[2018-03-13] MEDS ORDERED: LIDOCAINE 2% (100mg/5ml) SYRINGE (PF) IVP ONE (07:18)
[2018-03-13] MEDS ORDERED: BUPIVACAINE 0.5% (5mg/ml) PF 30ml INJ SDV ONE (07:21)
[2018-03-13] MEDS ORDERED: OXYTOCIN BOLUS BAG 30 UNIT/500 ML ML IV SCH (08:07)
[2018-03-13] MEDS ORDERED: NALBUPHINE 10 MG/ML INJECTION IVP PRN (08:54)
[2018-03-13] MEDS ORDERED: NALOXONE 2 MG/2 ML INJECTION PFS IVP PRN (08:54)
[2018-03-13] MEDS ORDERED: ONDANSETRON 4 MG/2 ML INJECTION IVP PRN (08:54)
--- NOTE | 2018-03-13 08:54 | Anesthesia Preoperative Report ---
Anesthesia Epidural/Spinal Rec - Date and Time Date: 03/13/18 Preoperative Diagnosis: 39 2/7 weeks Procedure: Plan: Epidural, Spinal - Vital Signs Vital Signs: Temperature 98.3 F 03/13/18 06:03 Pulse Rate 77 03/13/18 06:03 Respiratory Rate 16 03/13/18 06:03 Blood Pressure 118/74 03/13/18 06:03 Pulse Oximetry 98 03/13/18 06:03 NPO since: 2029 /Para: P:1 Heart Rate: 133 - Medictaions & Allergies Inpatient Medications: Current Medications Lactated Ringer's (Lactated Ringers) 1,000 mls @ 150 mls/hr IV .Q6H40M LOTTIE Last Admin: 03/13/18 08:00 Dose: 150 mls/hr Allergies/Adverse Reactions: Allergies Allergy/AdvReac Type Severity Reaction Status Date / Time No Known Allergies Allergy Verified 02/28/18 08:17 - Home Medications Home Medications: Home Medications Medication Instructions Recorded Confirmed Type Vits W-Ca,Fe,Fa(<1MG) 1 tab PO DAILY #0 tab 01/07/14 02/28/18 History () - Medical History Other History: Reports: Now - Surgical History Reproductive Surgery/Treatment: Reports: Section Anesthesia Reactions: None Hx Family Anesthesia Reaction: No History of Motion Sickness: No - Social History Smoking Status: Never smoker Second Hand Exposure: No Substance Use Type: does not use Alcohol Intake Frequency: does not drink Hx Chewing Tobacco Use: No - Pertinent Findings Lab Data: CBC and BMP 03/13/18 05:48 - Physical Exam Respiratory Exam: lungs clear, bilateral breath sounds equal Cardiovascular Exam: regular rate and rhythm - Airway Assessment Mallampati Score: I TMD: 3 Fingerbreadths Neck Extension: good Overall Assessment: no airway concerns - ASA ASA Score: 2 - Discussion Discussion: Discussed risks/options/alternatives of anesthesia and questions answered. Patient consents. Nursing pain assessment noted. Anesthesia Discussion: family member Attestation Statement: Prior to the delivery of any anesthetic medication, I examined the patient, developed the plan, obtained the patient's consent and discussed the risk and benefits of the procedure with the patient/guardian.
[2018-03-13] MEDS ORDERED: D5LR 1,000 ML IV SCH (10:31)
[2018-03-13] MEDS ORDERED: CALCIUM CARBONATE Chewable 500mg TABLET PO PRN (10:31)
[2018-03-13] MEDS ORDERED: OXYTOCIN DRIP 30 UNIT/500 ML ML IV SCH (10:31)
[2018-03-13] MEDS ORDERED: DiphenhydrAMINE 25 MG CAPSULE PO PRN (10:31)
[2018-03-13] MEDS ORDERED: RHOPHYLAC - PHARMACY CONSULT MC ONE (10:31)
[2018-03-13] MEDS ORDERED: SIMETHICONE 80 MG CHEWABLE TABLET PO PRN (10:31)
[2018-03-13] MEDS ORDERED: HYDROCORTISONE 2.5% CREAM 30gm RECTALLY PRN (10:31)
[2018-03-13] MEDS ORDERED: ACETAMINOPHEN 500 MG TABLET PO PRN (10:31)
[2018-03-13] MEDS: IBUPROFEN 800 MG TABLET PO SCH ×2 (11:07→19:40)
[2018-03-13] MEDS: SIMETHICONE 80 MG CHEWABLE TABLET PO SCH ×3 (13:03→21:40)
[2018-03-13] MEDS: DOCUSATE CALCIUM 240 MG CAPSULE PO SCH (13:04)
--- NOTE | 2018-03-13 14:24 | Operative Note ---
DATE OF OPERATION 03/13/2018 PREOPERATIVE DIAGNOSIS Term , previous x1, declines . POSTOPERATIVE DIAGNOSIS Term , previous x1, declines . PROCEDURE Repeat low transverse section. SURGEON Tiff Hylton MD ASSISTANT PROFESSOR OF CHEMISTRY Tomasz Wood, ANESTHESIA Combo spinal/epidural [employer] DETAILER Richard Harrison CRNA EBL 700 mL DESCRIPTION OF PROCEDURE Ms. Rhodes was brought to the OR. There was some difficulty with her initial regional analgesia. This was repeated and it was raised to adequate surgical levels. She was then placed in the supine position with left lateral displacement. A Chirinos catheter was placed to dependent drain. The abdomen was prepped and draped in the usual sterile fashion. A Pfannenstiel skin incision was made with a sharp knife. This was carried down to fascia. Fascia was incised transversely. Fascia was then tented up. This was bluntly and sharply dissected free of rectus muscles. Rectus muscles were bluntly divided. The peritoneum was tented up and sharply entered and then extended vertically. The bladder blade was inserted. Vesicouterine fold of peritoneum was tented up and incised transversely. Then a bladder flap bluntly created. The bladder blade was reinserted. A low transverse uterine incision was made with a sharp knife. There was copious clear amniotic fluid. The baby was delivered in vertex presentation. Baby was bulb suctioned on the abdomen. There was a loose nuchal cord that was reduced prior to delivery. The cord was doubly clamped and the baby was given to the pediatric team for care. This is a liveborn female with Apgars of 9/9. The placenta was expressed intact. It had a normal configuration and normal-appearing three-vessel cord. The uterine cavity was swept clear of membranes and the uterus exteriorized. The myometrial incision was then reapproximated with a running locking 0 Monocryl. Uterus, tubes and ovaries were noted to be grossly normal. The myometrial incision was reinspected and was hemostatic. We then returned the uterus to the abdominal cavity. We reapproximated peritoneum with a running nonlocking 2- 0 Vicryl. Fascia was then reapproximated with a running nonlocking 0 Vicryl. Delano's was reapproximated with two simple ligatures of 2-0 Vicryl and skin edges were reapproximated with subcuticular style 3-0 undyed Vicryl. The wound was dressed with Steri-Strips and a sterile dressing. Counts were correct postoperatively x2. The urine remained clear and free-flowing throughout the procedure. Ms. Rhodes was then transferred to recovery in stable condition. KAREN
[2018-03-13] MEDS: HYDROCODONE/APAP 5mg/325mg TABLET PO PRN ×2 (16:59→21:40)
[2018-03-14] MEDS: HYDROCODONE/APAP 5mg/325mg TABLET PO PRN ×4 (01:29→17:54)
[2018-03-14] MEDS: SIMETHICONE 80 MG CHEWABLE TABLET PO SCH ×5 (03:37→23:54)
[2018-03-14] MEDS: IBUPROFEN 800 MG TABLET PO SCH ×4 (03:38→23:54)
[2018-03-14] MEDS ORDERED: RHO(D) IMMUNE GLOBULIN 300 MCG/2 ML INJECTION IVP ONE (07:27)
[2018-03-14] MEDS: DOCUSATE CALCIUM 240 MG CAPSULE PO SCH (07:59)
--- NOTE | 2018-03-14 08:13 | OB/GYN Progress Note ---
OB-PP Progress Note - General PPD1 POD:: POD1 Maternal blood type: O- Maternal Rubella Status: Immune - Subjective Date: 03/14/18 Lochia: Minimal Pain: controlled Voiding: voiding Nausea or Vomiting Present: No - Objective Vital Signs: Last Vital Signs Temp 97.5 F 03/14/18 06:00 Pulse 66 03/14/18 06:00 Resp 16 03/14/18 06:00 BP 110/65 03/14/18 06:00 Pulse Ox 99 03/14/18 06:00 Urine Output: good General: alert and oriented Abdomen: fundus firm, non-tender Incision: dry, dressed Extremities: non-tender Edema: none Laboratory: Laboratory Results - last 24 hr 03/13/18 03/13/18 03/13/18 05:48 12:50 14:28 WBC 18.7 H RBC 3.06 L Hgb 8.9 L D Hct 27.7 L MCV 90.5 MCH 29.1 MCHC 32.1 RDW Std Deviation 43.4 Plt Count 190 MPV 10.9 Hgb /Adult Ratio Antibody Identification Immune D RhIG Candidate? Is a candidate 03/13/18 14:28 WBC RBC Hgb Hct MCV MCH MCHC RDW Std Deviation Plt Count MPV Hgb /Adult Ratio 0.0000 Antibody Identification RhIG Candidate? - Assessment Assessment: SP, Repeat C/S - Plan Plan: routine care, iron Pt may shower today.
[2018-03-14] MEDS: FERROUS SULFATE 324 MG TABLET PO SCH ×2 (10:19→18:53)
--- NOTE | 2018-03-14 14:10 | Anesthesia Postoperative Note ---
- Date and Time Date: 03/14/18 Time: 14:07 - Status Patient Participated in Evaluation: Patient Participated in Person Vital Signs: Temperature 97.5 F 03/14/18 10:00 Pulse Rate 80 03/14/18 10:00 Respiratory Rate 16 03/14/18 10:00 Blood Pressure 111/77 03/14/18 10:00 Pulse Oximetry 96 03/14/18 10:00 Respiratory Function: Airway Patent, Regular Respirations Cardiovascular Function: Regular Pulse Mental Status: Alert and Oriented Pain Intensity: 2 Hydration: Taking PO Fluids Complications During Recover: None Apparent Post Anesthesia Care Notes: ambulating without problems - Follow-Up Instructions Instructions: Per Surgeon
[2018-03-15] MEDS: HYDROCODONE/APAP 5mg/325mg TABLET PO PRN (05:01)
--- NOTE | 2018-03-15 08:09 | OB/GYN Progress Note ---
OB-PP Progress Note - General POD:: POD2 Maternal Group B Strep: Negative Maternal blood type: O- Maternal Rubella Status: Immune - Subjective Date: 03/15/18 Lochia: Minimal Pain: controlled Voiding: voiding Nausea or Vomiting Present: Yes - Objective Vital Signs: Last Vital Signs Temp 97.5 F 03/15/18 04:57 Pulse 61 03/15/18 04:57 Resp 14 03/14/18 23:45 BP 105/66 03/15/18 04:57 Pulse Ox 96 03/15/18 04:57 Urine Output: good General: alert and oriented Respiratory: non-labored Abdomen: fundus firm Incision: clean, intact Extremities: non-tender - Assessment Assessment: Repeat C/S - Plan Plan: discharge home
[2018-03-15] MEDS: SIMETHICONE 80 MG CHEWABLE TABLET PO SCH ×2 (10:16→11:10)
[2018-03-15] MEDS: IBUPROFEN 800 MG TABLET PO SCH (10:58)
[2018-03-15 11:07] VITALS: BP 102/64; PULSE 66; RESP 18; TEMP 98.7; O2SAT 97
[2018-03-15] MEDS: DOCUSATE CALCIUM 240 MG CAPSULE PO SCH (11:11)
[2018-03-15] MEDS: FERROUS SULFATE 324 MG TABLET PO SCH (11:11)
== END 2018-03-15 11:25 | disposition home or self-care (01) | DRG 766 ==
LOC: MC 03-13 05:20
PROVIDERS: ADMIT Obstetrics & Gynecology; ATTEND Obstetrics & Gynecology